=== PATIENT | female | born 1980 | race Caucasian/White ===

== ENCOUNTER 2017-09-26 06:34 | Day surgery (SDC) | payer MEDICAID ==
[2017-09-24 15:37] LABS: BASOPHILS # (AUTO) 0.1 X10'3 (0-0.2); EOSINOPHILS # (AUTO) 0.1 X10'3 (0-0.9); EOSINOPHILS % (AUTO) 1.4 % (0-6); LYMPHOCYTES # (AUTO) 2.4 X10'3 (1.1-4.8); LYMPHOCYTES % (AUTO) 29.2 % (21-51); MEAN CORPUSCULAR HEMOGLOBIN 32.6 PG (27.0-31.0); MEAN CORPUSCULAR HGB CONC 34.9 % (33.0-36.5); MEAN CORPUSCULAR VOLUME 93.4 FL (78-98); MEAN PLATELET VOLUME 7.8 FL (7.4-10.4); MONOCYTES # (AUTO) 0.5 X10'3 (0-0.9); MONOCYTES % (AUTO) 5.9 % (2-12); NEUTROPHILS # (AUTO) 5.2 X10'3 (1.8-7.7); NEUTROPHILS % (AUTO) 62.5 % (42-75); PRE OP HEMATOCRIT 39.4 % (35.0-45.0); PRE OP HEMOGLOBIN 13.8 g/dL (12.0-16.0); PRE OP PLATELET COUNT 292 X10'3 (140-440); RED BLOOD COUNT 4.22 X10'6 (4.20-5.60); RED CELL DISTRIBUTION WIDTH 14.4 % (11.5-14.5)
[2017-09-24 15:42] LABS: HCG SERUM QL NEGATIVE
[2017-09-24 15:44] LABS: ALBUMIN 4.2 G/DL (3.4-5.0); ANION GAP 13 (8-16); BLOOD UREA NITROGEN 10 MG/DL (7-18); BUN/CREATININE RATIO 11.1 (6.6-38.0); CALCIUM 8.6 MG/DL (8.5-10.1); CHLORIDE 104 MMOL/L (99-107); GLUCOSE 109 MG/DL (70-104); POTASSIUM 3.3 MMOL/L (3.5-5.1); SODIUM 143 MMOL/L (135-145); TOTAL CARBON DIOXIDE 26.3 MMOL/L (24-32); eGFR 71 ML/MIN
[~2017-09-26] VITALS: Ht 152.4 cm; Wt 83.3 kg
[2017-09-26] VITALS (9 sets, daily range): BP systolic 90–130; BP diastolic 40–71
[~2017-09-26 06:34] MED LIST: IBUP-2264 PO; famotidine 20mg tablet PO ONE; ringers solution, lacted 1,000 ML IV SCH
[2017-09-26] MEDS ORDERED: ringers solution, lacted 1,000 ML IV SCH (08:23)
[2017-09-26] MEDS ORDERED: proCHLORperazine 10 MG/2 ml inj IV PRN (08:25)
[2017-09-26] MEDS ORDERED: meperidine/PF 50mg/ml syringe IV PRN ×3 (08:25)
[2017-09-26] MEDS ORDERED: morphine 2 MG/ML inj. syringe IV PRN ×2 (08:25)
[2017-09-26] MEDS ORDERED: ondansetron/PF 4mg/2ml inj IV PRN (08:25)
[2017-09-26] MEDS ORDERED: midazolam 2 mg/2 ml injection ONE (08:27)
[2017-09-26] MEDS ORDERED: fentaNYL/PF 50MCG/1 ML 2ML syringe ONE (08:27)
[2017-09-26] MEDS ORDERED: ondansetron/PF 4mg/2ml inj ONE (08:53)
[2017-09-26] MEDS ORDERED: LIDOcaine 2% (20mg/ml) 5ml vial ONE (08:53)
[2017-09-26] MEDS ORDERED: rocuronium 10mg/ml inj IV ONE (08:53)
[2017-09-26] MEDS ORDERED: propofol inj 20 ML IV ONE (08:53)
[2017-09-26] MEDS ORDERED: dexamethasone sod phosphate 4mg/ml inj. ONE (08:53)
[2017-09-26] MEDS ORDERED: morphine 4 MG/ML inj SYRINge IV PRN ×2 (09:26)
[2017-09-26] MEDS ORDERED: traMADol 50MG tablet PO PRN (10:05)
== END 2017-09-26 12:35 | disposition home or self-care (01) ==
LOC: PAS 06:34
PROVIDERS: ATTEND Obstetrics & Gynecology
DX: Z30.2 Encounter for sterilization (principal); Z64.1 Problems related to multiparity; F17.210 Nicotine dependence, cigarettes, uncomplicated
CPT/HCPCS: 36415; 58660; 58670; 80048; 84703; 85025; J1100; J2001; J2175; J2250; J2270; J2405; J2704; J3010; J7120; A7000

== ENCOUNTER 2021-09-26 10:39 | Emergency (ER) | payer SELFPAY ==
[~2021-09-26] VITALS: Ht 152.4 cm; Wt 86.4 kg
[~2021-09-26 10:39] MED LIST changes: -IBUP-2264 PO; +IBUP-2697 PO; -famotidine 20mg tablet PO ONE; -ringers solution, lacted 1,000 ML IV SCH
[2021-09-26 11:06] VITALS: BP 131/81
[2021-09-26] MEDS ORDERED: ondansetron 4mg rapidly disintigrating tab PO ONE (12:15)
[2021-09-26] MEDS ORDERED: ONDA-104 PO (12:49)
== END 2021-09-26 12:59 | disposition home or self-care (01) ==
LOC: ER 10:40
DX: U07.1 COVID-19 (principal); R51.9 Headache, unspecified; Z56.0 Unemployment, unspecified; Z79.899 Other long term (current) drug therapy; Z91.048 Other nonmedicinal substance allergy status
CPT/HCPCS: 82948; 99283